=== PATIENT | female | born 1960 | race African-American/Black ===

== ENCOUNTER → 2017-08-20 | Day surgery (SDC) | payer MEDICARE, BC ==
[~2017-08-20] MED LIST: ACCUPRIL40 MG; ASPIRIN81 M2; BACTRIM DS TAB1 EACH PO; BLOOD PRESSURE X 2; CARVEDILOL12.5 MG PO; HUMALOG100 UNIT/1; HYDROCODONE-AP1 EAC6 PO; LANTUS SUBQ; LASIX 20 MG TAB20 MG; LEVAQUIN 750 M750 MG PO; NIFEDIPINE ER90 M1 PO; NOVOLOG100 UNIT/1; PREDNISONE50 MG PO; TESSALON PERLE100 MG PO; VENTOLIN HFA 1818 GM INH
[2017-08-20 10:37] LABS: HEMATOCRIT 36.1 % (37.0-47.0); HEMOGLOBIN 11.9 gm/dL (12.0-15.0); MCH 30.9 pg (26.0-34.0); MCHC 32.8 g/dL (28.0-37.0); MCV 94.2 fL (80.0-100.0); MPV 8.7 fl. (7.2-11.1); RBC 3.83 mil/uL (4.20-5.00); RDW-CV 17.1 % (10.5-14.5); WBC 8.8 thou/uL (4.0-11.0)
[2017-08-20 10:47] LABS: CALCIUM 9.3 mg/dL (8.5-10.1); POTASSIUM 5.1 mmol/L (3.5-5.1)
[2017-08-20 10:57] LABS: ALBUMIN 3.4 g/dL (3.4-5.0); TOTAL BILIRUBIN 0.4 mg/dL (<0.1-1.0); TOTAL PROTEIN 7.6 g/dL (6.4-8.2)
--- NOTE | 2017-08-20 15:10 | EKG ---
[place] [address] ELECTROCARDIOGRAM REPORT Name: LUCIA GRAFF Room: [facility]#: [id number] Admission: 08/20/17 Attend Phys: Jese Peterson Discharge: Date of : 62 Report #: [id number] THIS REPORT FOR: //name// [facility] Test Date: 2017-08-20 Test Time: 10:19:47 Pat Name: LUCIA GRAFF Department: Room: Gender: F Inspector Shells: : 1960 Requested By: Jese Peterson Order Number: [id number] Reading MD: Palmer Morelos Measurements Intervals [place] Rate: 80 P: 45 [place]: 185 QRS: 42 QRSD: 79 T: 77 QT: 360 QTc: 416 Interpretive Statements Sinus rhythm Abnormal R-wave progression, early transition Minimal ST elevation, anterior leads Compared to ECG 08/08/2016 19:54:44 ST (T wave) deviation now present T-wave abnormality no longer present Electronically Signed On 08-20-2017 15:10:18 CDT by Palmer Morelos [email or web address] <ELECTRONICALLY SIGNED> By: Palmer Morelos MD, [facility] 08/20/17 1510 [id number] Palmer Morelos MD, [facility] /EPI
--- NOTE | 2017-09-04 09:41 | PROC ---
[facility] [address] [place] [address] PROCEDURE REPORT Name: DAJUANLUCIA Beti Room: [facility]#: [id number] Admission: 08/20/17 Attend Phys: Jese Peterson Discharge: Date of : 62 Report #: [id number] THIS REPORT FOR: //name// CC: Chad Peterson DATE OF SERVICE: 08/20/2017 PREOPERATIVE DIAGNOSIS: End-stage renal disease. POSTOPERATIVE DIAGNOSIS: End-stage renal disease. OPERATION: 1. Laparoscopic peritoneal dialysis catheter placement. 2. Laparoscopic omentopexy. SURGEON: Jese Peterson MD ANESTHESIA: General. ESTIMATED BLOOD LOSS: Minimal. DESCRIPTION OF PROCEDURE: After informed consent was obtained, the patient was brought to the operating room and placed supine. SCDs were placed and working, preoperative antibiotics were administered, general anesthesia was induced. The abdomen was prepped and draped in the usual sterile fashion. A 5 mm incision was made in the left upper quadrant. A 5 mm trocar was placed under direct vision. Pneumoperitoneum was established. A left-sided 5 mm port was placed. I then placed an 8 mm port in the left rectus sheath under direct vision. The catheter was placed through the 8 mm port. It was then tunneled to the left upper quadrant of the abdomen. I then flushed this with 750 mL of heparinized saline and let 250 mL drain out. It flushed and drained very easily. Omentopexy was then performed by bringing the omentum up to the right upper quadrant and the left upper quadrant. A suture was placed in each quadrant using the suture passer and to tack the omentum up to the abdominal wall. The ports were then removed under direct vision. The skin was closed with 4-0 Monocryl. Incisions were sealed with Dermabond. COMPLICATIONS: None. DISPOSITION: The patient was taken to recovery in satisfactory condition. <ELECTRONICALLY SIGNED> By: Jese Peterson MD 09/04/17 0941 [id number] Peterson MD /nt
== END | disposition home or self-care (01) ==
LOC: M.SUR 09:57
PROVIDERS: Surgery
DX: Z49.02 Encounter for fitting and adjustment of peritoneal dialysis catheter (principal); N18.6 End stage renal disease; Z79.82 Long term (current) use of aspirin; Z79.899 Other long term (current) drug therapy; Z79.891 Long term (current) use of opiate analgesic; Z79.4 Long term (current) use of insulin